=== PATIENT | male | born 1935 | race Caucasian/White ===

== ENCOUNTER 2017-07-03 22:45 | Inpatient (IN) | payer MEDICARE ==
[~2017-07-03] VITALS: Ht 177.8 cm; Wt 99.3 kg
[2017-07-03] MEDS ORDERED: MAGN400O6 PO (23:24)
[2017-07-03] MEDS ORDERED: ACET325C PO (23:24)
[2017-07-03] MEDS ORDERED: DOCU100C36 PO (23:24)
[2017-07-03] MEDS ORDERED: DIVA125C PO (23:24)
[2017-07-03] MEDS ORDERED: OLAN5TAB3 PO (23:24)
[2017-07-03] MEDS ORDERED: LORA-258 PO (23:24)
[2017-07-03 23:33] LABS: *BILIRUBIN,URIN NEGATIVE (NEGATIVE); *BLOOD, URINE Trace-intact (NEGATIVE); *CLARITY,URINE CLEAR (CLEAR); *COLOR,URINE STRAW (YELLOW); *KETONES,URINE NEGATIVE (NEGATIVE); *PROTEIN,URINE NEGATIVE (NEGATIVE); *UROBILINOGEN,URINE 0.2 E.U./dl (NORMAL); LEUKOCYTE ESTERASE ,URINE NEGATIVE (NEGATIVE); NITRITE, URINE NEGATIVE (NEGATIVE); PH,URINE 6.5 (5.0-8.0); UGLUCOSE NEGATIVE (NEGATIVE)
[2017-07-03 23:40] LABS: BASOPHILS # (AUTO) 0.1 K/uL (0.0-8.0); BASOPHILS % (AUTO) 1.5 % (0.0-2.0); EOSINOPHILS # (AUTO) 0.1 K/uL (0.0-0.7); EOSINOPHILS % (AUTO) 1.6 % (0.0-7.0); HEMATOCRIT 37.3 % (40-50); HEMOGLOBIN 12.6 G/DL (14.0-18.0); LYMPHOCYTES # (AUTO) 1.2 K/UL (0.8-4.8); MEAN CORPUSCULAR HEMOGLOBIN 30.3 UUG (27.0-31.0); MEAN CORPUSCULAR HGB CONC 34 g/dL (32.0-37.0); MEAN CORPUSCULAR VOLUME 89.8 FL (82.0-92.0); MONOCYTES # (AUTO) 0.6 K/UL (0.1-1.30); MONOCYTES % (AUTO) 8.1 % (0.0-11.0); NEUTROPHILS # (AUTO) 5.9 K/UL (1.8-8.9); NEUTROPHILS % (AUTO) 73.8 % (38.5-71.5); PLATELET COUNT (AUTO) 356 K/UL (150-450); RED BLOOD CELL COUNT(AUTO) 4.15 MIL/UL (4.7-6.1); WHITE BLOOD COUNT (AUTO) 7.9 K/UL (4.0-11.2)
[2017-07-03 23:52] LABS: CARBON DIOXIDE 30 mmol/L (21-32); CHLORIDE 98 mmol/L (98-107); CREATININE 1.2 mg/dL (0.6-1.3); GLUCOSE 102 mg/dL (74-106); POTASSIUM 4.3 mmol/L (3.5-5.1); UREA NITROGEN, BLOOD 23 mg/dL (7-18)
[2017-07-04 00:08] LABS: ALANINE AMINOTRANSFERASE 34 U/L (16-63); ALKALINE PHOSPHATASE 54 U/L (50-136); ASPARTATE AMINOTRANSFERASE 23 U/L (15-37); BILIRUBIN,DIRECT 0.1 mg/dL (0.0-0.2); BILIRUBIN,TOTAL 0.3 mg/dL (0.2-1.0); TOTAL PROTEIN, SERUM 8.1 g/dL (6.4-8.2)
[2017-07-04 00:09] LABS: ACETAMINOPHEN < 2.0 ug/mL (10-30); ETHANOL < 3 MG/DL (0-0)
[2017-07-04 00:10] LABS: BACTERIA,URINE NONE SEEN /HPF (NONE SEEN); RBC,URINE 0-3 /HPF (0-3); WBC,URINE NONE SEEN /HPF (0-3)
[2017-07-04 00:11] LABS: SQUAMOUS EPITHELIAL CELL,UR FEW /HPF (NONE SEEN)
[2017-07-04] MEDS ORDERED: TEMAZEPAM 7.5 MG CAPSULE PO PRN (00:30)
[2017-07-04] MEDS ORDERED: LORAZEPAM 0.5 MG TABLET PO PRN (00:30)
[2017-07-04] MEDS ORDERED: MAGNESIUM HYDROXIDE 30 ML LIQUID UDC PO PRN (00:30)
[2017-07-04] MEDS ORDERED: ACETAMINOPHEN 325 MG TABLET PO PRN (00:30)
[2017-07-04] MEDS ORDERED: MAG HYDROX/AL HYDROX/SIMETH 30 ML LIQUID UDC PO PRN (00:30)
[2017-07-04 00:53] LABS: *AMPHETAMINE, URINE NEGATIVE (NEGATIVE); *BARBITURATE, URINE NEGATIVE (NEGATIVE); *CANNABINOID, URINE NEGATIVE (NEGATIVE); *COCCAINE, URINE NEGATIVE (NEGATIVE); *OPIATE, URINE NEGATIVE (NEGATIVE); *PHENCYCLIDINE SCREEN,URINE NEGATIVE (NEGATIVE)
[2017-07-04 07:30] VITALS: BP 136/78
[2017-07-04] MEDS: HALOPERIDOL LACTATE 10 MG/5 ML ORAL SOLUTION UDC PO SCH ×2 (12:15→17:00)
[2017-07-04] MEDS: DIVALPROEX SPRINKLE 125 MG CAP.SPRINK PO SCH ×2 (12:15→21:00)
[2017-07-04 15:48] VITALS: BP 106/77
[2017-07-04] MEDS: BENZTROPINE MESYLATE 0.5 MG TABLET PO SCH (17:00)
[2017-07-04 19:30] VITALS: BP 128/77
[2017-07-05 07:30] VITALS: BP 162/91
[2017-07-05] MEDS ORDERED: MAGNESIUM HYDROXIDE 30 ML LIQUID UDC PO PRN (08:00)
[2017-07-05] MEDS: DIVALPROEX SPRINKLE 125 MG CAP.SPRINK PO SCH ×2 (09:00→21:00)
[2017-07-05] MEDS: BENZTROPINE MESYLATE 0.5 MG TABLET PO SCH ×2 (09:00→16:57)
[2017-07-05] MEDS: HALOPERIDOL LACTATE 10 MG/5 ML ORAL SOLUTION UDC PO SCH ×2 (09:00→16:57)
[2017-07-05] MEDS: DOCUSATE SODIUM 100 MG CAPSULE PO SCH (09:00)
[2017-07-05 16:00] VITALS: BP 115/72
[2017-07-05 19:56] VITALS: BP 113/73
[2017-07-06 07:30] VITALS: BP 141/75
[2017-07-06] MEDS: DOCUSATE SODIUM 100 MG CAPSULE PO SCH (08:48)
[2017-07-06] MEDS: DIVALPROEX SPRINKLE 125 MG CAP.SPRINK PO SCH ×2 (08:48→21:00)
[2017-07-06] MEDS: BENZTROPINE MESYLATE 0.5 MG TABLET PO SCH ×2 (08:48→16:56)
[2017-07-06] MEDS: HALOPERIDOL LACTATE 10 MG/5 ML ORAL SOLUTION UDC PO SCH ×2 (08:48→16:56)
[2017-07-06 16:00] VITALS: BP 145/75
[2017-07-06 20:00] VITALS: BP 160/82
[2017-07-07 07:30] VITALS: BP 147/73
[2017-07-07] MEDS: HALOPERIDOL LACTATE 10 MG/5 ML ORAL SOLUTION UDC PO SCH ×2 (09:00→16:35)
[2017-07-07] MEDS: DOCUSATE SODIUM 100 MG CAPSULE PO SCH (09:00)
[2017-07-07] MEDS: BENZTROPINE MESYLATE 0.5 MG TABLET PO SCH ×2 (09:00→16:35)
[2017-07-07] MEDS: DIVALPROEX SPRINKLE 125 MG CAP.SPRINK PO SCH ×2 (09:00→20:51)
[2017-07-07 15:00] VITALS: BP 132/74
[2017-07-07 20:49] VITALS: BP 114/65
[2017-07-08 07:30] VITALS: BP_SYST 156; BP_SYST 168; BP_DIAS 73; BP_DIAS 80
[2017-07-08] MEDS: DOCUSATE SODIUM 100 MG CAPSULE PO SCH (08:18)
[2017-07-08] MEDS: BENZTROPINE MESYLATE 0.5 MG TABLET PO SCH ×2 (08:18→17:00)
[2017-07-08] MEDS: DIVALPROEX SPRINKLE 125 MG CAP.SPRINK PO SCH ×2 (08:19→20:32)
[2017-07-08] MEDS: HALOPERIDOL LACTATE 10 MG/5 ML ORAL SOLUTION UDC PO SCH ×2 (08:19→17:00)
[2017-07-08 16:43] VITALS: BP 135/75
[2017-07-08 20:53] VITALS: BP 126/73
[2017-07-09 07:30] VITALS: BP 150/90
[2017-07-09] MEDS: BENZTROPINE MESYLATE 0.5 MG TABLET PO SCH ×2 (08:39→17:00)
[2017-07-09] MEDS: HALOPERIDOL LACTATE 10 MG/5 ML ORAL SOLUTION UDC PO SCH ×2 (08:39→17:00)
[2017-07-09] MEDS: DOCUSATE SODIUM 100 MG CAPSULE PO SCH (08:39)
[2017-07-09] MEDS: DIVALPROEX SPRINKLE 125 MG CAP.SPRINK PO SCH ×2 (08:39→20:24)
[2017-07-09 16:00] VITALS: BP 125/72
[2017-07-09 20:10] VITALS: BP 124/64
[2017-07-10 07:30] VITALS: BP 139/90
[2017-07-10] MEDS: BENZTROPINE MESYLATE 0.5 MG TABLET PO SCH ×2 (08:25→16:55)
[2017-07-10] MEDS: DOCUSATE SODIUM 100 MG CAPSULE PO SCH (08:25)
[2017-07-10] MEDS: DIVALPROEX SPRINKLE 125 MG CAP.SPRINK PO SCH ×2 (08:25→20:34)
[2017-07-10] MEDS: HALOPERIDOL LACTATE 10 MG/5 ML ORAL SOLUTION UDC PO SCH ×2 (08:26→16:55)
[2017-07-10] MEDS ORDERED: HALOPERIDOL LACTATE 5 MG/1 ML VIAL IM PRN (11:30)
[2017-07-10 15:58] VITALS: BP 133/66
[2017-07-10 20:58] VITALS: BP 107/60
[2017-07-11 07:30] VITALS: BP 117/73
[2017-07-11] MEDS: HALOPERIDOL LACTATE 10 MG/5 ML ORAL SOLUTION UDC PO SCH (08:59)
[2017-07-11] MEDS: DIVALPROEX SPRINKLE 125 MG CAP.SPRINK PO SCH (08:59)
[2017-07-11] MEDS: BENZTROPINE MESYLATE 0.5 MG TABLET PO SCH (08:59)
[2017-07-11] MEDS: DOCUSATE SODIUM 100 MG CAPSULE PO SCH (09:00)
== END 2017-07-11 15:00 | DRG 885 ==
LOC: ER 22:46 → GPS 07-04 00:19
PROVIDERS: ADMIT Psychiatry & Neurology Psychosomatic Medicine
DX: F25.0 Schizoaffective disorder, bipolar type (principal); F02.81 Dementia in other diseases classified elsewhere, unspecified severity, with behavioral disturbance; G30.9 Alzheimer's disease, unspecified; D64.9 Anemia, unspecified; R26.2 Difficulty in walking, not elsewhere classified; F41.9 Anxiety disorder, unspecified; Z91.19 Patient's noncompliance with other medical treatment and regimen; R79.89 Other specified abnormal findings of blood chemistry
CPT/HCPCS: 36415; 70030-TC; 70450; 71010; 80307; 84443; 85025; 85730; 87086; 93005; A4663; G0480; G0480-TC